=== PATIENT | male | born 1960 | race Caucasian/White ===

== ENCOUNTER 2019-02-01 09:11 | Emergency (ER) | payer OTHER, MEDICARE ==
[2019-02-01 09:27] VITALS: BP 182/99
--- NOTE | 2019-02-01 09:42 | PHYS DOC ---
Past History Past Medical History: No Pertinent History Past Surgical History: No Surgical History Smoking: Non-smoker Alcohol Use: None Drug Use: None Adult General Chief Complaint Chief Complaint: ANKLE PROBLEM HPI HPI Patient is a 58-year-old male presents complaining of right knee and ankle pain. He was walking down the stairs yesterday at work, twisted his ankle and then felt a pop in his knee. He has been able to walk on it. He has been using an [id number] brace for both of his ankle and knee. No numbness or tingling. Pain is throbbing and worse in the ankles and the knee. He reports some bruising. No numbness or tingling. Pain is moderate to severe. No significant improvement with ibuprofen. No previous significant knee or ankle injury or surgery. [] Review of Systems Review of Systems Constitutional: Denies fever or chills [] Eyes: Denies change in visual acuity, redness, or eye pain [] HENT: Denies nasal congestion or sore throat [] Respiratory: Denies cough or shortness of breath [] Cardiovascular: No chest pain or palpitations[] GI: Denies abdominal pain, nausea, vomiting, bloody stools or diarrhea [] : Denies dysuria or hematuria [] Musculoskeletal: Denies back pain, see history of present illness [] Integument: Denies rash or skin lesions [] Neurologic: Denies headache, focal weakness or sensory changes [] Endocrine: Denies polyuria or polydipsia [] All other systems were reviewed and found to be within normal limits, except as documented in this note. Current Medications Current Medications Current Medications Medications (Trade) Dose Ordered Sig/Milena Start Time Stop Time Status Last Admin Dose Admin Ketorolac Tromethamine (Toradol 15mg Vial) 15 mg 1X ONCE 02/01/19 09:45 02/01/19 09:46 UNV Allergies Allergies Allergies Coded Allergies Type Severity Reaction Last Updated Verified Penicillins Allergy Unknown 02/01/19 Yes cephalexin Allergy Unknown 02/01/19 Yes Physical Exam Physical Exam Constitutional: Well developed, well nourished, no acute distress, non-toxic appearance. [] HENT: Normocephalic, atraumatic, bilateral external ears normal, oropharynx moist, no oral exudates, nose normal. [] Eyes: PERRLA, EOMI, conjunctiva normal, no discharge. [] Neck: Normal range of motion, no tenderness, supple, no stridor. [] Cardiovascular:Heart rate regular rhythm, no murmur [] Lungs & Thorax: Bilateral breath sounds clear to auscultation [] Abdomen: Not examined. [] Skin: Warm, dry, no erythema, no rash. [] Back: No tenderness, no CVA tenderness. [] Extremities: Right knee has full active range of motion. Diffuse tenderness, no effusion, no ballotable patella. No patellar apprehension. Negative drawer, negative Valentín, no varus or valgus laxity, no joint line tenderness. Right ankle has diffuse tenderness along with medial malleolus tenderness to palpation. No significant bruising is appreciated. Patient is distally neurovascularly intact. Full active range of motion. No laxity. A joint above and below both sources of pain were evaluated and were normal. The other 3 extremities show: No tenderness, no cyanosis, no clubbing, ROM int act, no edema. [] Neurologic: Alert and oriented X 3, normal motor function, normal sensory function, no focal deficits noted. [] Psychologic: Affect normal, judgement normal, mood normal. [] Current Patient Data Vital Signs Vital Signs Date Time Temp Pulse Resp B/P (MAP) Pulse Ox O2 Delivery O2 Flow Rate FiO2 02/01/19 09:27 98.0 67 18 96 Room Air EKG EKG [] Radiology/Procedures Radiology/Procedures TECHNIQUE: 3 views of the right ankle and 3 views of the right knee COMPARISON: None FINDINGS: Right ankle: No acute fracture or dislocation. Right knee: No acute fracture or dislocation. Mild tricompartmental osteoarthritis. Small suprapatellar effusion. IMPRESSION: As above.[] Course & Med Decision Making Course & Med Decision Making Pertinent Labs and Imaging studies reviewed. (See chart for details) ED course: Patient arrived, was placed in bed, and tolerated exam well. Patient deferred on intramuscular NSAIDs. He was transported to and from radiology with any complications. After the return of the x-ray findings, these were discussed with the patient who voiced understanding. Ankle splint was applied. He was distally neurovascularly intact after splint application. All questions were answered. He was discharged in improved condition. Medical decision making: There is no evidence of a fracture or dislocation, no evidence of significant ligamentous or tendinous injury, no evidence of neurologic or vascular compromise.[] Dragon Disclaimer Dragon Disclaimer This electronic medical record was generated, in whole or in part, using a voice recognition dictation system. Departure Departure: Impression: Primary Impression: Right ankle sprain Additional Impression: Right knee sprain Disposition: HOME, SELF-CARE Condition: IMPROVED Referrals: PCP,NO (PCP) Patient Instructions: Ankle Sprain, Acute, with Phase I Rehab-SportsMed, Knee Sprain Additional Instructions: Follow-up with your regular doctor in 2 days. If you do not have a regular doctor list of local clinics will be provided for you. Return to the ER if worsening pain, weakness, or any other concerns. Scripts Meloxicam (MELOXICAM) 7.5 Mg Tablet 7.5 MG PO DAILY for PAIN, #20 TAB Prov: CHEYANNE GARY DO 02/01/19 Problem Qualifiers Primary Impression: Right ankle sprain Encounter type: initial encounter Involved ligament of ankle: unspecified ligament Qualified Codes: S93.401A - Sprain of unspecified ligament of right ankle, initial encounter Additional Impression: Right knee sprain Encounter type: initial encounter Involved ligament of knee: unspecified ligament Qualified Codes: S83.91XA - Sprain of unspecified site of right knee, initial encounter CHEYANNE GARY DO Feb 01, 2019 09:42
[2019-02-01] MEDS ORDERED: KETOROLAC 15 MG/ML VIAL. IM ONE (10:00)
--- NOTE | 2019-02-01 10:03 | RAD ---
Indication: Right ankle and knee pain after fall TECHNIQUE: 3 views of the right ankle and 3 views of the right knee COMPARISON: None FINDINGS: Right ankle: No acute fracture or dislocation. Right knee: No acute fracture or dislocation. Mild tricompartmental osteoarthritis. Small suprapatellar effusion. IMPRESSION: As above. Electronically signed by: Larry Grimaldo DO (02/01/2019 10:00 AM) [facility]
--- NOTE | 2019-02-01 10:03 | RAD ---
Indication: Right ankle and knee pain after fall TECHNIQUE: 3 views of the right ankle and 3 views of the right knee COMPARISON: None FINDINGS: Right ankle: No acute fracture or dislocation. Right knee: No acute fracture or dislocation. Mild tricompartmental osteoarthritis. Small suprapatellar effusion. IMPRESSION: As above. Electronically signed by: Larry Grimaldo DO (02/01/2019 10:00 AM) [facility]
[2019-02-01] MEDS ORDERED: MELO7.5T29 PO (10:18)
== END 2019-02-01 10:21 | disposition home or self-care (01) ==
LOC: ER 09:11
DX: S93.401A Sprain of unspecified ligament of right ankle, initial encounter (principal); S83.91XA Sprain of unspecified site of right knee, initial encounter; Z88.1 Allergy status to other antibiotic agents; Z88.0 Allergy status to penicillin; X50.1XXA Overexertion from prolonged static or awkward postures, initial encounter; Y93.01 Activity, walking, marching and hiking; Y92.89 Other specified places as the place of occurrence of the external cause; Y99.8 Other external cause status
CPT/HCPCS: 29515; 73562; 73610; 99284

== ENCOUNTER 2019-02-05 10:11 | Emergency (ER) | payer OTHER, MEDICARE ==
[~2019-02-05] VITALS: Ht 177.8 cm; Wt 113.4 kg
[~2019-02-05 10:11] MED LIST: MELO7.5T29 PO
[2019-02-05 10:25] VITALS: BP 170/97
--- NOTE | 2019-02-05 10:33 | PHYS DOC ---
Past History Past Medical History: No Pertinent History Past Surgical History: No Surgical History Smoking: Non-smoker Alcohol Use: None Drug Use: None Adult General Chief Complaint Chief Complaint: LOWER EXT PAIN HPI HPI Patient is a 58-year-old male presents complaining of right knee pain. Today patient was moving and fell. Patient sustained a knee and ankle injury 4 days ago for which she was seen, had x-rays obtained, and placed in an ankle splint. Increased pain with movement. Reports that his leg "gave out" today. No new numbness or tingling. Increased pain with movement. He has taken no new medicines for discomfort. He did not hit his head, no loss of consciousness. Pain is moderate to severe.[] Review of Systems Review of Systems Constitutional: Denies fever or chills [] Eyes: Denies change in visual acuity, redness, or eye pain [] HENT: Denies nasal congestion or sore throat [] Respiratory: Denies cough or shortness of breath [] Cardiovascular: No chest pain or palpitations[] GI: Denies abdominal pain, nausea, vomiting, bloody stools or diarrhea [] : Denies dysuria or hematuria [] Musculoskeletal: Denies back pain, see history of present illness[] Integument: Denies rash or skin lesions [] Neurologic: Denies headache, focal weakness or sensory changes [] Endocrine: Denies polyuria or polydipsia [] All other systems were reviewed and found to be within normal limits, except as documented in this note. Allergies Allergies Allergies Coded Allergies Type Severity Reaction Last Updated Verified Penicillins Allergy Unknown 02/01/19 Yes cephalexin Allergy Unknown 02/01/19 Yes morphine Allergy Unknown 02/05/19 Yes Physical Exam Physical Exam Constitutional: Well developed, well nourished, no acute distress, non-toxic appearance. [] HENT: Normocephalic, atraumatic, bilateral external ears normal, oropharynx moist, no oral exudates, nose normal. [] Eyes: PERRLA, EOMI, conjunctiva normal, no discharge. [] Neck: Normal range of motion, no tenderness, supple, no stridor. [] Cardiovascular:Heart rate regular rhythm, no murmur [] Lungs & Thorax: Bilateral breath sounds clear to auscultation [] Abdomen: Bowel sounds normal, soft, no tenderness, no masses, no pulsatile masses. [] Skin: Warm, dry, no erythema, no rash. [] Back: No tenderness, no CVA tenderness. [] Extremities: Right knee has diffuse tenderness, some increased tenderness over the tibial tuberosity. There is some edema. No ballotable patella. No varus or valgus laxity. Negative Valentín, negative drawer test. He is distally neurovasc ularly intact. No hip tenderness. His right ankle is in an air splint without any new tenderness. No hip tenderness, full active range of motion of the hip as well as the knee. The other 3 extremities show: No tenderness, no cyanosis, no clubbing, ROM inta ct, no edema. [] Neurologic: Alert and oriented X 3, normal motor function, normal sensory function, no focal deficits noted. [] Psychologic: Affect normal, judgement normal, mood normal. [] EKG EKG [] Radiology/Procedures Radiology/Procedures PROCEDURE: KNEE RIGHT 3V Examination: 3 views of the right knee HISTORY: History of right knee pain after fall COMPARISON: None available. FINDINGS: Mild joint space loss identified in the medial, lateral, patellofemoral compartments. Small knee joint effusion is identified. Small osteophyte formation identified in the medial compartment. Small enthesophyte identified in the superior patella at the attachment of the quadriceps tendon. IMPRESSION: 1. Mild tricompartmental degenerative changes most in the medial compartment. 2. Small knee joint effusion.[] Course & Med Decision Making Course & Med Decision Making Pertinent Labs and Imaging studies reviewed. (See chart for details) ED course: Patient arrived, was placed in bed, and tolerated exam well. He was transferred to and from radiology with any complications. After return the x-ray findings these were discussed with the patient who voiced understanding. He was placed in immobilization as well as trained on crutch use. He was discharged in improved condition. Medical decision making: There is no evidence of a fracture or dislocation. No evidence of neurologic or vascular compromise. There may be internal issues with the knee that or not available to be seen on plain radiographs. Instructed patient to follow up with his regular doctor for possible MRI of the knee. This is not indicated on an emergent basis at this time.[] Dragon Disclaimer Dragon Disclaimer This electronic medical record was generated, in whole or in part, using a voice recognition dictation system. Departure Departure: Impression: Primary Impression: Right knee pain Disposition: HOME, SELF-CARE Condition: IMPROVED Referrals: PCP,NO (PCP) Patient Instructions: Crutch Use, Knee Exercises, Generic, SportsMed, Knee Pain Additional Instructions: Rest the knee as much as possible. Follow-up with your regular doctor or Worker's Compensation physician in 2 days. You may need to have an MRI performed as an outpatient. There is no MRI capability at [facility]. Weight- bear as tolerated while using the crutches. Return to the ER if worsening pain, weakness, or any other concerns. Problem Qualifiers Primary Impression: Right knee pain Chronicity: acute Qualified Codes: M25.561 - Pain in right knee CHEYANNE GARY DO Feb 05, 2019 10:33
--- NOTE | 2019-02-05 10:40 | RAD ---
Examination: 3 views of the right knee HISTORY: History of right knee pain after fall COMPARISON: None available. FINDINGS: Mild joint space loss identified in the medial, lateral, patellofemoral compartments. Small knee joint effusion is identified. Small osteophyte formation identified in the medial compartment. Small enthesophyte identified in the superior patella at the attachment of the quadriceps tendon. IMPRESSION: 1. Mild tricompartmental degenerative changes most in the medial compartment. 2. Small knee joint effusion. Electronically signed by: Simeon Gordon MD (02/05/2019 10:37 AM) [place] [id number]
== END 2019-02-05 11:19 | disposition home or self-care (01) ==
LOC: ER 10:11
DX: M25.561 Pain in right knee (principal); M25.461 Effusion, right knee; Z88.0 Allergy status to penicillin; Z88.1 Allergy status to other antibiotic agents; Z88.5 Allergy status to narcotic agent
CPT/HCPCS: 73562; 99284